=== PATIENT | female | born 1995 | race Caucasian/White ===

== ENCOUNTER 2024-07-18 20:44 | Emergency (ER) | payer OTHER ==
[~2024-07-18] VITALS: Ht 157.5 cm; Wt 110.0 kg
[2024-07-18 20:49] VITALS: O2SAT 99
[2024-07-18 21:21] VITALS: BP 130/90; PULSE 110; RESP 16; TEMP 36.9; O2SAT 100
[2024-07-18 22:17] VITALS: TEMP 98.4
[2024-07-18] MEDS: ACETAMINOPHEN 500MG TABLET PO ONE (22:17)
[2024-07-18] MEDS ORDERED: IBUP-2029 MT (23:01)
[2024-07-18] MEDS ORDERED: CYCL5TAB3 MT (23:01)
[2024-07-18] MEDS: CYCLOBENZAPRINE 10MG TABLET PO ONE (23:07)
== END 2024-07-18 23:10 | disposition home or self-care (01) ==
LOC: ER 20:44
DX: M54.2 Cervicalgia (principal); J45.909 Unspecified asthma, uncomplicated; Z79.899 Other long term (current) drug therapy; Z88.1 Allergy status to other antibiotic agents; Z88.0 Allergy status to penicillin; V43.52XA Car driver injured in collision with other type car in traffic accident, initial encounter; Y93.89 Activity, other specified; Y92.89 Other specified places as the place of occurrence of the external cause; Y99.8 Other external cause status
CPT/HCPCS: 81025; 99284